=== PATIENT | female | born 1975 | race Caucasian/White ===

== ENCOUNTER 2022-05-16 13:10 | Emergency (ER) | payer MEDICARE ==
[~2022-05-16 13:10] MED LIST: K-TAB ER20 MEQ PO
[2022-05-16 13:47] LABS: RED BLOOD COUNT 4.6 M/UL (4.00-5.10); WHITE BLOOD COUNT 7.1 K/UL (4.5-11.0)
[2022-05-16 14:08] LABS: BUN/CREATININE RATIO 18 (0-10)
== END 2022-05-16 14:29 | disposition home or self-care (01) ==
LOC: ER1 13:10
PROVIDERS: Student in an Organized Health Care Education/Training Program
DX: R07.89 Other chest pain (principal)
CPT/HCPCS: 71045; 80053; 82550; 82553; 84484; 85025; 85379; 93005; 96365; 99285; J1885